=== PATIENT | male | born 1960 | race Caucasian/White ===

== ENCOUNTER 2021-08-28 05:57 | Outpatient (REF) | payer BC, SELFPAY ==
[2021-08-28 11:38] LABS: Appearance Urine CLEAR; Color Urine YELLOW; Glucose Urine UA NEG (NEG); Leukocyte Esterase Urine NEG (NEG); Nitrite Urine NEG (NEG); Specific Gravity - Urine 1.025 (1.005-1.025); Urine Blood NEG (NEG); Urine Ketones NEG (NEG); Urine Protein NEG (NEG-TRACE)
[2021-08-28 11:42] LABS: Alanine Aminotransferase 28 U/L (0-40); Albumin Level 4.3 g/dL (3.5-5.0); Alkaline Phosphatase 82 U/L (39-117); Anion Gap 11 (12-20); Aspartate Amino Transferase 29 U/L (5-37); Bilirubin Total 0.7 mg/dL (0.0-1.0); Blood Urea Nitrogen 20 mg/dL (9-16); Calcium 9.2 mg/dL (8.4-10.2); Carbon Dioxide 28 mmol/L (22-29); Chloride 104 mmol/L (96-108); Cholesterol 265 mg/dL; Estimated Glomerular Filt Rate > 60; Glucose Fasting 123 mg/dL (60-99); HDL Cholesterol 64 mg/dL; LDL Cholesterol Calculated 177 mg/dl; Potassium 4.4 mmol/L (3.3-5.1); Sodium 139 mmol/L (135-145); Total Protein 7.4 g/dL (6.5-8.0); Triglycerides 124 mg/dL
[2021-08-28 11:48] LABS: TSH reflex Free T4 2.13 uIU/mL (0.32-4.0)
[2021-09-02 12:21] LABS: Testosterone, Total 345 ng/dL (250-1100)
== END 2021-08-28 05:58 | disposition home or self-care (01) ==
LOC: HO.HMGCLDS 05:57
PROVIDERS: Visit Provider Nurse Practitioner Family
DX: Z00.00 Encounter for general adult medical examination without abnormal findings (principal); N52.9 Male erectile dysfunction, unspecified
CPT/HCPCS: 36415; 80053; 80061; 81003; 84403; 84443

== ENCOUNTER 2022-04-15 06:53 | Day surgery (SDC) | payer BC, SELFPAY ==
[2022-04-13 10:04] VITALS: BMI 29.9
[2022-04-13 10:18] VITALS: BMI 31.0
--- NOTE | 2022-04-14 13:43 | P.CONAN_ITS ---
Documented by User: Jewell Wilkerson NP 04/14/22 13:43 HPI - Anesthesia Eval Consult details Narrative: 62yo M for Colonoscopy PMFSH Active Problems Active Problems: All Active Problems (Updated 04/13/22 @ 10:17 by Jessica Lambert, ZURI) Screening for colon cancer (Acute) Physical exam (Acute) Skin lesion of face (Acute) Erectile dysfunction (Acute) Dyslipidemia (Acute) Elevated fasting glucose (Acute) Past Medical History Medical History Glaucoma Low back pain Family History Family History Father Pancreatic cancer Surgical History Surgical History H/O colonoscopy Social History Social History Housing: House Are you a primary critical care unit nurse to a significant other at home: No Do you presently have visiting nurse or other home services: No Patient Tobacco Use Status: Never used Tobacco e-Cigarette/Vaping Use: Never Used Second Hand Smoke Exposure: No Use of substances other than those prescribed or required for medical reasons: No Are you DNR?: No Advance Directives: No Advance Directives Information Provided: Yes Poor oral hygiene: No service: No Current occupational status: employed Current occupation: Behind [employer] Current occupational exposures/hazards: No Meds Allergies Allergy/AdvReac Type Severity Reaction Status Date / Time No Known Allergies Allergy Verified 12/09/21 15:32 [No Known Allergies*] Home Medications Medication Instructions Recorded Confirmed Last Taken Type latanoprost 0.005 % eye drops 1 drp ophthalmic (eye) BEDTIME 05/11/21 04/13/22 Unknown History Exam Exam Date and Time: April 14, 2022 1343 Height,Weight and Vital Signs: Height 5 ft 9 in Weight 95.254 kg Assessment and Plan Assessment Anesthesia Assessment: Chart Reviewed Documented by User: Joellen Simon MD 04/15/22 08:43 [facility] Past Medical History Medical History Glaucoma Low back pain Family History Family History Father Pancreatic cancer Family history of problems with anesthesia: No Surgical History Surgical History H/O colonoscopy History of Problems with Anesthesia: No Social History Social History Housing: House Are you a primary critical care unit nurse to a significant other at home: No Do you presently have visiting nurse or other home services: No Patient Tobacco Use Status: Never used Tobacco e-Cigarette/Vaping Use: Never Used Second Hand Smoke Exposure: No Use of substances other than those prescribed or required for medical reasons: No Are you DNR?: No Advance Directives: No Advance Directives Information Provided: Yes Poor oral hygiene: No service: No Current occupational status: employed Current occupation: Behind the [employer] Current occupational exposures/hazards: No Meds Allergies Allergy/AdvReac Type Severity Reaction Status Date / Time No Known Allergies Allergy Verified 12/09/21 15:32 [No Known Allergies*] Home Medications Medication Instructions Recorded Confirmed Last Taken Type latanoprost 0.005 % eye drops 1 drp ophthalmic (eye) BEDTIME 05/11/21 04/13/22 Unknown History Exam Height,Weight and Vital Signs: Height 5 ft 9 in Weight 95.254 kg Vital Signs Temp Pulse Resp BP Pulse Ox O2 Del Method 04/15/22 07:28 96.7 F L 66 16 120/79 97 Room Air Airway Mallampati Class: III TM Dist: >3cm Neck ROM: Full Loose/Missing/Broken Teeth: No (Denies broken, loose, missing teeth) Heart: RRR Lungs: CTAB Assessment and Plan Assessment Anesthesia Assessment: Anesthesia Plan Discussed Final Anesthetic Review Family History of Problems with Anesthesia: No History of Problems with Anesthesia: No NPO: Yes ASA Class: II Final Preanesthetic Review: No Changes in Pt Med Stat, Meds/Allgs Chart Reviewed, Consent Obtained/Reviewed and Anes Risks/Benef Reviewed Patient Risk: Low Procedure Risk: Low Assessment/Block/Sedation in SS: Assess/Block/Sedation-SS Anesthetic Plan Anesthetic Plan: MAC: Disposition: Standard PACU
--- NOTE | 2022-04-15 07:27 | PC.NURSE ---
no changes with pretesting per patient
[2022-04-15 07:28] VITALS: BP 120/79; PULSE 66; RESP 16; TEMP 35.9; O2SAT 97
[2022-04-15] MEDS: Lactated Ringers 1,000 ML 100 ML IVCONT (07:45)
--- NOTE | 2022-04-15 08:32 | MHC.SHP ---
Pre-Procedural Eval Section A Date of Service: 04/15/22 Section B Chief Complaint: screening Details of Present Illness: pancreatic cancer Relevant Family History (Specify if Yes): Yes Relevant Social History: None Present Medications: see Short Stay Collaborative assessment Medical History: Significant History (Glaucoma Low back pain) History of Previous Operations: Relevant previous surgery/procedure and date(s) (colonsocopy) Allergies: Allergies Allergy/AdvReac Type Severity Reaction Status Date / Time No Known Allergies Allergy Verified 12/09/21 15:32 [No Known Allergies*] Review of Systems Sugical H&P ROS: Negative: Constitution, Cardiovascular, Respiratory, Neurological, Psychiatric, Hem-Onc, Allergic/Immunologic, Gastrointestinal, Genitourinary, Musculoskeletal, Integumentary, Endocrine and Eyes/Ears/Nose/Throat Exam Surgical H&P Exam: Normal: HEENT, Normal: Heart, Normal: Lungs, Normal: Extremities, Normal: Abdomen, Normal: Skin and Normal: Neurological Plan Diagnosis/Plan: Unchanged I have reviewed the history and physical and performed a pertinent physical examination on my patient. No changes have occurred unless specified. Time Spent With Patient Time: Total time managing care of this patient today ____ minutes.
--- NOTE | 2022-04-15 08:33 | P.OP_ITS ---
Operative Note Operative Note Date of Service: 04/15/22 Narrative: Operative Information Procedure Description: Colonoscopy Indication: screening Anesthesia: MAC COLONOSCOPY Instrument: Olympus variable stiffness pediatric scope 190L Colonoscopy Monitoring: Vital signs and clinical assessment, continuous EKG monitoring, Pulse oximetry, Carbon Dioxide monitoring and blood pressure monitoring were done throughout the procedure. Colon withdrawal time was 13 minutes. Procedure: The patient was placed in the left lateral decubitis position and pre-procedure medications were administered. After a digital rectal examination of the ano-rectum, the video colonoscope was inserted into the rectum and advanced through the colon to the cecum/TI. The colonoscope was slowly withdrawn in a retrograde panoramic fashion and the colon mucosa was carefully examined including a retroflexed view of the rectum. Findings and interventions are described below. Procedure Difficulty: easy Findings: Terminal Ileum- patchy ileitis, bx taken Cecum:normal, biopsies taken Ascending Colon: 7-8 mm sessile polyp removed with forceps and cold snare Transverse Colon -normal Descending Colon: 10 mm sessile polyp removed with cold snare Sigmoid Colon: normal Rectum: Retroflexion with small internal hemorrhoids, grade I Anorectum - normal Colon preparation: [place] Bowel Preparation Scale Right colon; 2 Transverse colon: 2 Left colon; 2 (0 = Unprepared colon segment with mucosa not seen due to solid stool that cannot be cleared. 1 = Portion of mucosa of the colon segment seen, but other areas of the colon segment not well seen due to staining, residual stool and/or opaque liquid. 2 = Minor amount of residual staining, small fragments of stool and/or opaque liquid, but mucosa of colon segment seen well. 3 = Entire mucosa of colon segment seen well with no residual staining, small fragments of stool or opaque liquid) Impression and Post Procedure Diagnosis: polyps internal hemorrhoids ileitis Plan: High fiber diet leaflet Avoid straining at stool, epsom salts and sitz bath, anusol supps or cream Repeat Colonoscopy in 5 years due to polyps or earlier if clinically indicated check nsaid use, consider CTe or VCE Above findings were reviewed with the patient and relevant handouts were provided if indicated.
[2022-04-15 09:18] VITALS: BP 108/61; PULSE 73; RESP 16; TEMP 36.6; O2SAT 95
[2022-04-15 09:33] VITALS: BP 111/65; PULSE 65; RESP 16; TEMP 36.5; O2SAT 97
== END 2022-04-15 10:11 | disposition home or self-care (01) ==
PROVIDERS: PCP Nurse Practitioner Family; Visit Provider Internal Medicine Gastroenterology
PROC: 0DJD8ZZ Inspection of Lower Intestinal Tract, Via Natural or Artificial Opening Endoscopic (ICD-10-PCS; CPT 45378; principal; 2022-04-15 08:30)
DX: Z12.11 Encounter for screening for malignant neoplasm of colon (principal); D12.2 Benign neoplasm of ascending colon; D12.4 Benign neoplasm of descending colon; K50.00 Crohn's disease of small intestine without complications; K64.0 First degree hemorrhoids; Z86.010 Personal history of colon polyps; H40.9 Unspecified glaucoma; M54.50 Low back pain, unspecified; Z79.899 Other long term (current) drug therapy
CPT/HCPCS: 45385; 45380; 88305

== ENCOUNTER → 2022-05-07 07:56 | Outpatient (BNVA) | payer BC, SELFPAY | PROVIDERS: PCP Nurse Practitioner Family; Referring Provider Nurse Practitioner Family; Visit Provider Nurse Practitioner Family | DX: Z13.89 Encounter for screening for other disorder (principal) ==

== ENCOUNTER 2022-06-02 07:46 | Outpatient (REF) | payer BC, SELFPAY ==
--- NOTE | ~2022-06-02 | CT_ITS ---
EXAMINATION: CT ENTEROGRAPHY ABDOMEN AND PELVIS WITH CONTRAST CLINICAL INFORMATION: Crohn's disease of small intestine COMPARISON: None TECHNIQUE: Study performed with oral VoLumen (1350 mL) and 480 mL of water to distend the abdomen. The patient was injected with 85 mL Omnipaque 350 intravenous contrast which was administered without adverse effect. Coronal and sagittal reformatted images were obtained at the technologist's workstation. This CT examination was performed using dose optimization techniques as appropriate, variously including the following: *Automated exposure control *Adjustment of mA and/or kV according to patient size (this includes techniques or standardized protocols for targeted exams where dose is matched to indication/reason for exam; i.e. extremities or head) *Use of iterative reconstruction technique DLP: 554 mGy-cm FINDINGS: GASTROINTESTINAL FINDINGS: Stomach: Well-distended and normal in appearance. Small intestine: Satisfactorily distended and normal in appearance. Large intestine: Well-distended and normal in appearance. No perirectal changes demonstrated. The appendix is normal. Additional findings: No abnormal enhancement of the vasa recta or significant mesenteric or retroperitoneal lymphadenopathy is seen. No abdominal abscess or fistulous tract demonstrated. ABDOMINAL AND PELVIC CT FINDINGS: Liver, gallbladder, biliary tract: Normal Pancreas: Normal Spleen: Normal Adrenal glands and kidneys: There is a small 1 cm cyst in the right kidney. No imaging follow-up recommended. The kidneys are otherwise normal. Ureters and bladder: Normal Lymphovascular structures: Normal Bones: Degenerative changes of the spine. Lung bases: Normal There is a small left inguinal hernia containing fat. Small supraumbilical hernia containing fat. CT/CT enterography IMPRESSION: No evidence of inflammatory bowel disease seen.
[2022-06-02] MEDS: iohexoL 350 MG/ML 100 ML INFUS..BTL IV (09:33)
[2022-06-02] MEDS: Sorbitol/Mannit/Xanth Imaging 500 ML LIQUID 1500 ML PO (09:33)
[2022-06-03 08:50] LABS: Creatinine POC 1.2 mg/dL (0.5-1.4); GFR POC > 60
== END 2022-06-02 07:47 | disposition home or self-care (01) ==
LOC: HO.CT 07:46
PROVIDERS: PCP Nurse Practitioner Family; Visit Provider Nurse Practitioner Family
DX: K50.00 Crohn's disease of small intestine without complications (principal)
CPT/HCPCS: 74177; 82565; Q9967

== ENCOUNTER 2023-02-08 07:04 | Outpatient (REF) | payer BC, SELFPAY ==
[2023-02-08 11:10] LABS: MANUAL DIFF FLAG NO
[2023-02-08 11:18] LABS: Basophils Absolute Auto 0.1 X10*3/uL (0.0-0.2); Basophils Percent Auto 0.9 % (0-2); Eosinophils Absolute Auto 0.2 X10*3/uL (0.0-0.4); Eosinophils Percent Auto 2.2 % (0-4); Hematocrit 45.6 % (42.0-52.0); Hemoglobin 15.6 g/dl (14.0-18.0); Imm Gran Abs Auto 0.04 X10*3/uL (0.00-0.03); Imm Gran Pct Auto 0.5 % (0.0-0.4); Lymphocytes Absolute Auto 1.8 X10*3/uL (1.2-4.9); Lymphocytes Percent Auto 23.6 % (20-40); Mean Corpuscular HGB Conc 34.2 g/dl (31.0-36.0); Mean Corpuscular Volume 93.6 fL (80.0-98.0); Mean Platelet Volume 9.8 fL (9.4-12.4); Monocytes Absolute Auto 0.6 X10*3/uL (0.1-1.2); Monocytes Percent Auto 7.4 % (2-11); Neutrophils Absolute Auto 4.8 x10*3/uL (2.0-8.3); Neutrophils Percent Auto 65.4 % (45-73); Platelet Count 245 X10*3/uL (160-400); Red Blood Count 4.87 X10*6/uL (4.60-5.80); Red Cell Distribution Width 12.3 % (11.0-16.0); White Blood Count 7.4 X10*3/uL (4.8-10.8)
[2023-02-08 11:48] LABS: Appearance Urine Clear; Color Urine Yellow; Glucose Urine UA Negative (Negative); Leukocyte Esterase Urine Negative (Negative); Nitrite Urine Negative (Negative); PH 5.5 (5.0-9.0); Urine Blood Negative (Negative); Urine Ketones Negative (Negative); Urine Protein Negative (Neg-Trace)
[2023-02-08 11:49] LABS: Prostate Specific Antigen Scr 0.34 ng/mL (<0.05-4.0)
[2023-02-08 11:54] LABS: Alanine Aminotransferase 24 U/L (0-40); Albumin Level 4.3 g/dL (3.5-5.0); Alkaline Phosphatase 72 U/L (39-117); Anion Gap 14 (12-20); Aspartate Amino Transferase 23 U/L (5-37); Bilirubin Total 0.8 mg/dL (0.0-1.0); Blood Urea Nitrogen 19 mg/dL (9-16); Calcium 9.4 mg/dL (8.4-10.2); Carbon Dioxide 27 mmol/L (22-29); Chloride 102 mmol/L (96-108); Cholesterol 272 mg/dL (<200); Estimated Glomerular Filt Rate > 60; Glucose Fasting 113 mg/dL (60-99); HDL Cholesterol 56 mg/dL (>40); LDL Cholesterol Calculated 169 mg/dL (<100); Potassium 4.1 mmol/L (3.3-5.1); Sodium 139 mmol/L (135-145); Total Protein 7.7 g/dL (6.5-8.0); Triglycerides 238 mg/dL (<150)
[2023-02-08 11:55] LABS: TSH reflex Free T4 2.63 uIU/mL (0.32-4.0)
== END 2023-02-08 07:05 | disposition home or self-care (01) ==
LOC: HO.HMGCLDS 07:04
PROVIDERS: PCP Nurse Practitioner Family; Visit Provider Nurse Practitioner Family
DX: Z00.00 Encounter for general adult medical examination without abnormal findings (principal); Z12.5 Encounter for screening for malignant neoplasm of prostate; E78.5 Hyperlipidemia, unspecified; R73.01 Impaired fasting glucose
CPT/HCPCS: 36415; 80053; 80061; 81003; 84153; 84443; 85025

== ENCOUNTER 2023-02-10 13:36 | Outpatient (AMB) | payer BC, SELFPAY ==
--- NOTE | 2023-02-10 13:52 | A.OFFPC_ITS ---
Vital Signs 02/10/23 13:53 Weight 227 lb BP 122/80 Blood Pressure Location Lt brachial Position Sitting Pulse 64 Pulse Source Pulse Oximeter Pulse Oximetry (%) 94 Oxygen Delivery Method Room Air Intake Visit Reasons: Physical Allergies No Known Allergies [No Known Allergies*] Allergy (Verified 02/10/23 13:54) Tobacco use date assessed: 02/10/23 Dental Screening Dental Screen Date: 02/10/23 Did you have a dental visit in the last 12 months?: No Did you have a dental problem in the last 6 months where you did not have access to dental care?: No Was dental information given to patient?: Patient has dentist HPI Physical HPI Details Here for PE. colon screen is up to date. Does report nocturia (2-3 times per night), intermittent weak stream. will refer to urology. Dyslipidemia: starting statin, repeat lipids in 2 months. SOB with exertion, denies any CP, dizziness, MORAN. Will order a stress test and echo. [facility] Medical History Low back pain Glaucoma Surgical History H/O colonoscopy Family History Father Pancreatic cancer Social History Housing: House Are you a primary day care aide to a significant other at home: No Do you presently have visiting nurse or other home services: No Patient Tobacco Use Status: Never used Tobacco e-Cigarette/Vaping Use: Never Used Second Hand Smoke Exposure: No service: No Current occupational status: employed Current occupation: [employer] Current occupational exposures/hazards: No Questionnaire Thrive Questionnaire Date Thrive assessed: 05/11/21 I am a: Patient What is your living situation today?: I have a steady place to live Within the past 12 months, did the food you bought not last and you didn't have the money to get more?: Never true Within the past 12 months, did you worry whether your food would run out before you got money to buy more?: Never true Currently or been in a relationship where the following occur: no concerns reported AUDIT C Alcohol Use Questionnaire (AUDIT-C) 1. How often do you have a drink containing alcohol?: 2-3 times a week 2. How many drinks containing alcohol do you have on a typical day when you are drinking?: 3 or 4 3. How often do you have six or more drinks on one occasion?: Monthly Total Score: 6 Score Reviewed/Action Taken: Yes COLLEEN-7 AMB Questionnaire COLLEEN-7 Date COLLEEN - 7 assessed: 05/11/21 Feeling nervous, anxious, or on edge: 0 = Not at all Not being able to stop or control worryin = Not at all Worrying too much about different things: 0 = Not at all Trouble relaxin = Not at all Being so restless that it is hard to sit still: 0 = Not at all Becoming easily annoyed or irritable: 0 = Not at all Feeling afraid as if something awful might happen: 0 = Not at all Total COLLEEN-7 score (0-4 normal; 5-9 mild; 10-14 moderate; 15-21 severe): 0 Source: Developed by Drs. Celso Page, Adriana Mcallister, Bipin Garay and colleagues, with an educational chacha from [employer]. Review of Systems Const Denies chills and Denies fever(s) Eyes Denies blurry vision ENT Denies vertigo, Denies dizziness and Denies sore throat Card Denies chest pain at rest, Denies chest pain with activity, Denies diaphoresis, Denies dyspnea and Reports dyspnea on exertion Resp Denies cough, Denies dyspnea, Reports dyspnea on exertion and Denies wheezing GI Denies abdominal pain, Denies melena, Denies hematochezia, Denies constipation, Denies diarrhea and Denies loose stools Denies hematuria Musc Denies numbness and Denies tingling Skin/Breast Denies lesions Neuro Denies vertigo, Denies dizziness, Denies numbness and Denies tingling Psych Denies anxiety, Denies depression, Denies homicidal ideation, Denies suicidal ideation and Denies other (substance abuse) Aller/Immun Denies wheezing Physical exam (Primary Care) Vital Signs: Last Vital Signs Pulse 64 02/10/23 13:53 BP 122/80 02/10/23 13:53 Pulse Ox 94 02/10/23 13:53 Oxygen Delivery Method Room Air 02/10/23 13:53 Tobacco/Smoking Status: Tobacco use Status Tobacco use date assessed 02/10/23 02/10/23 13:56 Patient Tobacco Use Status Never used Tobacco 02/10/23 13:56 e-Cigarette/Vaping Use Never Used 02/10/23 13:56 Thrive Assessment: Date of Thrive Assessment Date Thrive assessed 05/11/21 02/10/23 13:56 Currently or been in a relationship where the following occur: no concerns reported Const General: cooperative Nutritional Appearance: well nourished Orientation/consciousness: patient oriented x3 HENMT Head: Yes normal to inspection, Yes normocephalic and Yes atraumatic Ears: TM normal on the right and TM normal on the left Eyes General: appearance normal, both eyes and all related structures Alignment and Position: alignment normal and position normal Neck Neck: Yes normal visual inspection and Yes no lymphadenopathy Resp Effort & Inspection: normal respiratory effort Auscultation: clear to auscultation bilaterally Cardio Rate: regular rate Rhythm: regular rhythm Heart sounds: S1 normal heart sound present, S2 normal heart sound present and no murmurs GI Palpation (GI): Soft to palpation and nontender Auscultation: normal bowel sounds Other: prostate felt slightly enlarged Male General Exam: Yes normal external exam Penis: normal penis Scrotum: scrotum normal, testes descended bilaterally and no inguinal hernias Testes: no testicular mass Skin Rashes: no rashes Neuro General: patient oriented x3, moves all extremities, no focal motor deficits and deep tendon reflexes 2+ bilaterally Romberg Test: Negative Extrem Right lower extremity: no edema Left lower extremity: no edema Psych Appearance: grossly normal Mental Status: mental status grossly normal Speech and movement: Normal speech and movement present Affect: normal affect Attitude: cooperative Thought process: Normal thought process present Assessment and Plan Assessment & Plan (1) Physical exam: Code(s): Z00.00 - Encounter for general adult medical examination without abnormal findings (2) Dyslipidemia: Code(s): E78.5 - Hyperlipidemia, unspecified Plan: start statin, repeat lipids in 2 months (3) SOB (shortness of breath): Code(s): R06.02 - Shortness of breath (4) Nocturia: Code(s): R35.1 - Nocturia Orders: Orders Comprehensive [place]. Panel Fast 2 Months E78.5 - Hyperlipidemia, unspecified Lipid Panel 2 Months E78.5 - Hyperlipidemia, unspecified AMB EKG-In Office Today Z00.00 - Encounter for general adult medical examination without abnormal findings CA stress test Today R06.02 - Shortness of breath NM cardiolite stress test Today R06.02 - Shortness of breath CA echo transthoracic complete Today R06.02 - Shortness of breath Referrals Urology Referral R35.1 - Nocturia Medications: New atorvastatin 20 mg PO BEDTIME 90 tabs 0RF 90 days Coding Level of Care Code Est Pt Prev Care 40-64y(70303) Diagnoses Physical exam Z00.00 Dyslipidemia E78.5 SOB (shortness of breath) R06.02 Nocturia R35.1
[2023-02-10 13:53] VITALS: BP 122/80; PULSE 64; O2SAT 94
== END 2023-02-10 15:00 | disposition home or self-care (01) ==
PROVIDERS: PCP Nurse Practitioner Family; Visit Provider Nurse Practitioner Family
DX: Z00.00 Encounter for general adult medical examination without abnormal findings (principal); E78.5 Hyperlipidemia, unspecified; R06.02 Shortness of breath; R35.1 Nocturia
CPT/HCPCS: 99396

== ENCOUNTER → 2023-04-01 08:02 | Outpatient (REF) | payer BC, SELFPAY ==
--- NOTE | ~2023-04-01 | NM_ITS ---
EXERCISE MYOCARDIAL PERFUSION STUDY INDICATION: Shortness of breath, assess for coronary disease and ischemia TECHNIQUE: The patient was brought in for an exercise perfusion study on 04/01/2023. Patient performed exercise as per Eric protocol and was injected 25 mCi of sestamibi once target heart rate was achieved. Images were obtained using the SPECT gamma camera interlaced with the gating device. Images were obtained in supine position. Resting perfusion study was performed on 04/07/2023. Patient was administered 25 mCi of sestamibi intravenously at rest. Images were then obtained in supine position. Images were processed with the software and compared side to side in short axis, horizontal long axis and vertical long axis views. Total DLP 140mGy-cm. FINDINGS: Raw images were reviewed. The stress perfusion study showed no significant perfusion defects. Both uncorrected as well as CT attenuation corrected images were reviewed. The gated study shows normal LV systolic function with calculated LVEF of 55%. LV cavity is normal in size. The gated study shows normal wall thickening and contraction of segments. Resting study shows no significant perfusion defects. Gating at rest reveals normal wall motion with ejection fraction at 61%. The findings are consistent with no clear reversible or fixed perfusion defects. NM/NM cardiolite stress test IMPRESSION: 1. Myocardial perfusion imaging study shows normal myocardial perfusion. 2. Gated LVEF is 52% during stress and 61% during rest. 3. Transient ischemic dilatation not present. EKG component of the test reported separately.
--- NOTE | 2023-04-01 08:05 | CA_ITS ---
Transthoracic Echocardiogram Patient (Last, First, Middle): Rajat Pino, Gender: Male Date of : 1960 Age: 63 Procedure Date: 04/01/2023 Procedure Type: Transthoracic Echocardiogram Location: OP Height: 175.26 cm Weight: 99.79 kg BSA: 2.15 m2 Heart Rate: bpm BP: 124 / 80 mmHg Bindery Worker: Referring MD: Marquise Banks [facility] Acid Cutter: Bo Cotto MD Symptoms: R06.02 - Shortness of breath Study Quality: Fair ECG Rhythm: Sinus Conclusions: - 1. Normal LV systolic function with LVEF of 60-65% 2. Normal cardiac valvular Doppler 3. Normal RV systolic pressure 4. No gross pericardial effusion Findings Left Ventricle Normal left ventricular size, thickness, and systolic function. The visually estimated ejection fraction is between 60-65%. Spectral Doppler is indicative of a normal filling pattern. Right Ventricle Normal right ventricular cavity size and systolic function. Atria Both atria are normal in size. Interatrial shunt cannot be excluded. Aortic Valve Normal aortic valve structure and function. There is no aortic valve stenosis. There is no aortic valve regurgitation. Mitral Valve Normal mitral valve structure and function. There is trace mitral valve regurgitation. There is no mitral valve stenosis. Pulmonic Valve The pulmonic valve is likely normal. Tricuspid Valve Normal tricuspid valve structure. There is trace tricuspid valve regurgitation. The right ventricular systolic pressure is normal. The right ventricular systolic pressure is 19 mmHg. Normal right atrial pressure. There is no evidence of pulmonary hypertension. Great Vessels All visible segments of the aorta are normal in size. The pulmonary artery was not well visualized. Venous The inferior vena cava is normal in size and collapses greater than 50% with inspiration. Pericardium/Pleural There is no evidence of pericardial effusion. Prior Study Comparison No prior study available for comparison. Measurements 2D Linear Measurements IVSd: 0.84 0.6-0.9/0.6-1.0 cm LVIDd: 4.49 3.9-5.3/4.2-5.9 cm LVIDd Index: 2.09 2.4-3.2/2.2-3.1 cm/m2 LVIDs: 2.70 2.0-3.6 cm LVPWd: 1.01 0.7-1.1 cm Ao Root: 3.00 2.1-3.5 cm LA Diam: 3.80 2.7-3.8/3.0-4.0 cm LAIDs Index: 1.77 1.5-2.3 cm/m2 LV Mass: 170.77 67-162/88-224 g LV Mass Index: 79.43 43-95/49-115 g/m2 LVOT Diam: 2.20 3.0+(-)1.3 cm 2D Systolic Function EF 4C: 61.20 >55% EF 2C: 58.30 >55% EF BiP: 60.30 >55% Mitral Valve MV Pk E: 0.61 MV PK A: 0.60 MV Decel Time: 194.00 E/A: 1.00 E'Lateral: 9.79 E'Medial: 6.09 E/E' Med: 10.00 E/E' Lat: 6.20 PHT: 57.00 MVA PHT: 3.86 Decel Jasper: 3.13 Aortic Valve AoV Pk Brayan: 1.06 AoV Mn Brayan: 0.73 AoV VTI: 0.23 AoV Pk Grad: 4.00 Aov Mn Grad: 2.00 FADY Cont.VTI: 2.71 LVOT LVOT Pk Brayan: 0.80 LVOT Mn Brayan: 0.49 LVOT VTI: 0.17 LVOT Pk Grad: 3.00 LVOT Mn Grad: 1.00 LVOT Diam: 2.20 LVOT Area: 3.80 Diastolic Function MV Pk E: 0.61 MV Pk A: 0.60 E/A: 1.00 E'Medial: 6.09 E/E' Med: 10.00 E' Laterial: 9.79 E/E' Lat: 6.20 Right Ventricle TAPSE (mm): 23.00 TVS' Brayan: 11.00 Tricuspid Valve TR Pk Brayan: 1.98 TR Pk Grad: 16.00 RA Press: 3.00 RVSP: 19.00 Great Vessels Aorta Ao Root-2D: 3.00 2.0-3.7 cm Ao Asc: 3.40 2.1-3.4 cm Pulmonary Valve PV Pk Brayan: 0.93 Peak PV Grad: 3.00 Updated in Other Vendor System with Status of Final Bo Cotto MD electronically signed on 04/01/2023 12:53:17 PM with status of Final
--- NOTE | 2023-04-01 08:05 | CA_ITS ---
Acquisition Time: 2023-04-01 09:32:23 Total Exercise Time: 00:08:31 Test Indications: Dyspnea Medications: ATORVASTATIN Protocol: RAMILA Max HR: 136 BPM 85% of Pred: 159 BPM Max BP: 130/074 mmHG Max Work Load: 10.1 METS Exercise stress test with exercise 8 min 31 sec of Ramila protocol, achieving 85% MPHR, with mild sob, no chest discomfort, with isolated PACs and PVCs, with normotensive response to exercise, without EKG changes meeting criteria for ischemia. Nuclear images pending. Test reviewed with Dr Cotto Referred By: Marquise Banks Overread By: ISABELLE LARA
== END ==
LOC: HO.CARD 08:02
PROVIDERS: PCP Nurse Practitioner Family; Visit Provider Nurse Practitioner Family
DX: R06.02 Shortness of breath (principal)
CPT/HCPCS: 78452; 93017; 93306; A9500; Q9957

== ENCOUNTER → 2023-04-01 08:05 | Outpatient (BNV) | payer BC, SELFPAY | PROVIDERS: PCP Nurse Practitioner Family; Visit Provider Nurse Practitioner Family | DX: R06.02 Shortness of breath (principal) | CPT/HCPCS: 78452; 93016; 93018; 93306 ==

== ENCOUNTER 2023-04-05 08:46 | Outpatient (AMB) | payer BC, SELFPAY ==
--- NOTE | 2023-04-05 08:50 | A.OFFVIS_ITS ---
Intake Intake Visit Reasons: Nocturia Intake Note: New Patient presents for initial visit for Nocturia Urology Medications: none Blood Thinner: none PVR: Purchasing Agent Required: No Accompanied by: Self / Same As Patient Allergies No Known Allergies [No Known Allergies*] Allergy (Verified 04/05/23 09:23) Medication List - Last Reconciled 04/05/23 by MARLIN Knott atorvastatin 20 mg PO BEDTIME 90 days latanoprost 0.005% 1 drp ophthalmic (eye) BEDTIME HPI HPI Comments History of Present Illness Details Rajat Corral is a very pleasant 63-year-old male patient of Dr. Banks. He has a past medical history of glaucoma in back pain. He presents to the office today as a new patient for nocturia. In discussion with the patient today he reports noting over the last few months to be getting up approximately 2-3 times per night and discussing this with PCP at annual visit at which time recommendations were made for Urology follow-up. In review of patient's chart it appears PSA 01/31--0.3. He otherwise denies urinary urgency, urinary frequency, incontinence, hematuria, dysuria, foul smelling urine, changes to urinary stream, flank pain, fever, and or chills. Discussed at length potential causes for nocturia. Discussed lifestyle modifications to assist with nocturia. Patient otherwise denies any signs and symptoms of sleep apnea. When asked he denies any issues with erectile dysfunction. Discussed obtaining retroperitoneal ultrasound for further assessment evaluation. ERNIE offered however patient reports having had ERNIE with PCP noting somewhat enlarged prostate otherwise being told no abnormalities were noted. In office urinalysis results reviewed with the patient today. PVR 46 mLs. PFSH Medical History Low back pain Glaucoma Surgical History H/O colonoscopy Family History Father Pancreatic cancer Social History Housing: House Are you a primary wound care coordinator to a significant other at home: No Do you presently have visiting nurse or other home services: No Patient Tobacco Use Status: Never used Tobacco e-Cigarette/Vaping Use: Never Used Second Hand Smoke Exposure: No service: No Current occupational status: employed Current occupation: [employer] Current occupational exposures/hazards: No Review of Systems Const All systems reviewed & are unremarkable except as noted in HPI and below Physical Exam Const General: cooperative, comfortable, no acute distress, well developed, alert and awake Orientation/consciousness: patient oriented x3 HEENT Head: Yes normal to inspection, Yes normocephalic and Yes atraumatic Ears: hearing grossly normal bilaterally Eyes General: appearance normal, both eyes and all related structures Neck Neck: Yes normal visual inspection and Yes trachea midline Chest Chest palpation & inspection: normal inspection of the chest Resp Effort & Inspection: normal respiratory effort and able to speak in complete sentences Cardio Rate: regular rate GI Inspection: Yes normal to inspection General: Yes no CVA tenderness Back/Spine/Pelvis Back: no CVA tenderness Skin General skin exam: no rashes or lesions noted Neuro General: patient oriented x3 Extrem General: Yes normal to inspection Psych Appearance: grossly normal and well kempt Mental Status: mental status grossly normal Speech and movement: Normal speech and movement present and Clear speech present Affect: normal affect Attitude: cooperative Thought process: Normal thought process present Thought content: Normal thought content present Insight: Good insight present (Psych) Judgement: Good judgement present (Psych) Office Procedures Post Void Residual Post Residual Void Post Void Residual (PVR): 46 [id number] Void Residual by ultrasound Results AMB Urinalysis, Automated UA Leukoctes 0 Ashley/uL Last Edit by [employer] on 04/05/23 09:14 UA Nitrite Negative Last Edit by [employer] on 04/05/23 09:14 UA Urobilinogen 0.2 mg/dL Last Edit by [employer] on 04/05/23 09:14 UA Protein 0 mg/dL Last Edit by [employer] on 04/05/23 09:14 UA pH 6.0 Last Edit by [employer] on 04/05/23 09:14 UA Blood 0 Raj/uL Last Edit by [employer] on 04/05/23 09:14 UA Specific [place] 1.020 Last Edit by [employer] on 04/05/23 09:14 UA Ketone Negative Last Edit by Devonte Wilcox on 04/05/23 09:14 UA Bilirubin 0 mg/dL Last Edit by Devonte Wilcox on 04/05/23 09:14 UA Glucose 0 mg/dL Last Edit by Devonte Wilcox on 04/05/23 09:14 Results Reviewed Results Reviewed: Laboratory Last Values Urine pH (Auto) 6.0 04/05/23 08:52 Specific [place] (Auto) 1.020 04/05/23 08:52 Urine Protein (Auto) 0 mg/dL 04/05/23 08:52 Glucose (UA)(Auto) 0 mg/dL 04/05/23 08:52 Urine Ketones (Auto) Negative 04/05/23 08:52 Urine Blood (Auto) 0 Raj/uL 04/05/23 08:52 Urine Nitrite (Auto) Negative 04/05/23 08:52 Urine Bilirubin (Auto) 0 mg/dL 04/05/23 08:52 Urine Urobilinogen (Auto) 0.2 mg/dL 04/05/23 08:52 Leukocyte Esterase (Auto) 0 Ashley/uL 04/05/23 08:52 Assessment & Plan Assessment & Plan (1) Nocturia: Code(s): R35.1 - Nocturia Plan In office urinalysis results reviewed with the patient today; as noted above. PVR 46 mL. Discussed at length potential causes for nocturia Discussed lifestyle modifications to assist with decreasing episodes of nocturia such as limiting fluids 2-3 hours prior to bed. Discussed possible near future in office cystoscopy if symptoms persist and/or worsen. Will obtain retroperitoneal ultrasound for further assessment evaluation. Follow-up in 1-2 months with imaging to be completed prior; or sooner with any issues, concerns, and or questions. Orders: Orders AMB Urinalysis Automated Today Z13.9 - Encounter for screening, unspecified AMB Post Void Residual by ultrasound Today R35.1 - Nocturia US retroperitoneal comp Today R35.1 - Nocturia Patient Instructions: The patient had an opportunity to ask questions regarding the treatment plan. All questions were answered. Physical exam, labs, and imaging were discussed and reviewed in detail. As well as risks, benefits, and discussion of treatment choices. No major barriers to understanding were identified. The patient expressed understanding and agreement with the above treatment plan. The patient was made aware they should contact our office by phone for worsening of their current condition, the appearance of new symptoms, or with any questions or concerns. Compliance is encouraged with any medications and follow up testing that is ordered. It is a privilege to be allowed the opportunity to participate in? your urological care.? Again, if you have any questions or concerns If you have any questions or concerns please do not hesitate to contact me. The office is [phone]. This note is constructed using voice recognition software. While every effort has been made to ensure accuracy legal arbitrator errors may have been included. Yours sincerely, MARLIN Knott Coding Level of Care Code New Pt Level 3 (19628) Diagnoses Nocturia R35.1 CPT Codes Post Residual Void - PVR CPT Code: 95678-Lukh Void Residual by ultrasound ([id number])
== END 2023-04-05 09:24 | disposition home or self-care (01) ==
PROVIDERS: PCP Nurse Practitioner Family; Visit Provider Nurse Practitioner Family
DX: R35.1 Nocturia (principal); Z13.9 Encounter for screening, unspecified
CPT/HCPCS: 99203

== ENCOUNTER → 2023-04-05 08:46 | Outpatient (BNVA) | payer BC, SELFPAY | PROVIDERS: PCP Nurse Practitioner Family; Visit Provider Nurse Practitioner Family | DX: R35.1 Nocturia (principal) | CPT/HCPCS: 51798; 81003 ==

== ENCOUNTER 2023-04-07 07:41 | Outpatient (REF) | payer BC, SELFPAY | END 2023-04-07 07:42 | disposition home or self-care (01) | LOC: HO.XRAY 07:41 | PROVIDERS: PCP Nurse Practitioner Family; Visit Provider Nurse Practitioner Family | DX: R06.02 Shortness of breath (principal) | CPT/HCPCS: 71046 ==

== ENCOUNTER 2023-04-27 06:40 | Outpatient (REF) | payer BC, SELFPAY ==
[2023-04-27 11:54] LABS: Alanine Aminotransferase 49 U/L (0-40); Albumin Level 4.2 g/dL (3.5-5.0); Alkaline Phosphatase 80 U/L (39-117); Anion Gap 12 (12-20); Aspartate Amino Transferase 37 U/L (5-37); Bilirubin Total 0.9 mg/dL (0.0-1.0); Blood Urea Nitrogen 15 mg/dL (9-16); Calcium 9.2 mg/dL (8.4-10.2); Carbon Dioxide 28 mmol/L (22-29); Chloride 101 mmol/L (96-108); Cholesterol 173 mg/dL (<200); Estimated Glomerular Filt Rate 56; Glucose Fasting 120 mg/dL (60-99); HDL Cholesterol 54 mg/dL (>40); LDL Cholesterol Calculated 88 mg/dL (<100); Sodium 137 mmol/L (135-145); Total Protein 7.6 g/dL (6.5-8.0); Triglycerides 157 mg/dL (<150)
== END 2023-04-27 06:41 | disposition home or self-care (01) ==
LOC: HO.HMGCLDS 06:40
PROVIDERS: PCP Nurse Practitioner Family; Visit Provider Nurse Practitioner Family
DX: E78.5 Hyperlipidemia, unspecified (principal)
CPT/HCPCS: 36415; 80053; 80061

== ENCOUNTER 2023-05-04 08:22 | Outpatient (REF) | payer BC, SELFPAY ==
--- NOTE | ~2023-05-04 | US_ITS ---
EXAMINATION: US ABDOMEN COMPLETE CLINICAL INFORMATION: Abnormal levels of other serum enzymes. COMPARISON: CT enterography 06/02/2022. TECHNIQUE: Real-time imaging of the abdominal viscera. FINDINGS: PANCREAS: Normal. ABDOMINAL AORTA: The proximal, mid, and distal segments are normal in caliber. INFERIOR VENA CAVA: Visualized portions are normal. LIVER: The liver is normal in size. The liver contour is normal. Increased liver parenchymal echogenicity. No focal hepatic lesion. There is no intrahepatic biliary duct dilatation seen. GALLBLADDER: Normal. The gallbladder is physiologically distended without evidence of stones, sludge, polyps, wall thickening or pericholecystic fluid. COMMON BILE DUCT: Normal in caliber measuring 0.2 cm in diameter. RIGHT KIDNEY: Normal. No hydronephrosis. No renal calculi or focal parenchymal lesions. The kidney measures 10.3 cm in maximum dimension. LEFT KIDNEY: Normal. No hydronephrosis. No renal calculi or focal parenchymal lesions. The kidney measures 12.0 cm in maximum dimension. SPLEEN: Normal. The spleen measures 12.2 cm in maximum dimension. Splenule measuring up to 1.8 cm. FREE FLUID: None. US/US abdomen complete IMPRESSION: Increased liver parenchymal echogenicity which is nonspecific but could be seen in the setting of hepatic steatosis or hepatocellular disease
--- NOTE | ~2023-05-04 | US_ITS ---
EXAMINATION: US PELVIS LIMITED (BLADDER) CLINICAL INFORMATION: Nocturia. COMPARISON: CT enterography 06/02/2022. TECHNIQUE: Real-time imaging of the bladder. FINDINGS: BLADDER: Well distended and normal. Bilateral ureteral jets are demonstrated. Prevoid bladder volume is 324 mL. Postvoid bladder volume is 19.4 mL. Enlarged prostate, volume 42 mL. US/US bladder IMPRESSION: 1. Normal sonographic appearance of the urinary bladder. 2. Enlarged prostate. 3. Post void bladder volume of 19.4 mL.
== END 2023-05-04 08:23 | disposition home or self-care (01) ==
LOC: HO.HMGCX 08:22
PROVIDERS: PCP Nurse Practitioner Family; Visit Provider Nurse Practitioner Family
DX: R74.8 Abnormal levels of other serum enzymes (principal)
CPT/HCPCS: 76700; 76857

== ENCOUNTER 2023-05-23 08:25 | Outpatient (AMB) | payer BC, SELFPAY ==
--- NOTE | 2023-05-23 08:31 | A.OFFVIS_ITS ---
Intake Intake Visit Reasons: 4-8 week follow up / US(SET) Intake Note: Patient presents for follow up visit for Nocturia and Ultrasound results Imagin05/04/23 Urology medications: none Blood thinner: none PVR: 25ml's Presser Machine Required: No Accompanied by: Self / Same As Patient Allergies No Known Allergies [No Known Allergies*] Allergy (Verified 05/23/23 09:52) Medication List - Last Reconciled 05/23/23 by MARLIN Knott atorvastatin 20 mg PO BEDTIME 90 days latanoprost 0.005% 1 drp ophthalmic (eye) BEDTIME HPI HPI Comments History of Present Illness Details Rajat Corral is a very pleasant 63-year-old male patient of Dr. Banks. He has a past medical history of glaucoma in back pain. He presents to the office today for a follow up. Of note, patient was seen approximately 6 weeks ago as a new patient for nocturia at which time retroperitoneal ultrasound was ordered for further assessment evaluation in discussion regarding lifestyle modifications for nocturia was reviewed. In discussion with the patient today reports to be doing and feeling well. He reports having limited fluids 2-3 hours prior to bed and has noted significant improvement in episodes of nocturia. He reports currently to be getting up 1 time per night and feels this is significantly improved and tolerable. Recent retroperitoneal ultrasound results reviewed with the patient today. Bilateral kidneys with no calculi, lesions, and or hydronephrosis noted. The bladder is well distended and normal. Bilateral ureteral jets are demonstrated. Pre void bladder volume is approximately 320 mL. Postvoid bladder volume is approximately 20 mL. Enlarged prostate at approximately 40 mL. He otherwise denies urinary urgency, urinary frequency, incontinence, nocturia, hematuria, dysuria, foul smelling urine, changes to urinary stream, flank pain, fever, and or chills. He is happy with his current voiding parameters. In office urinalysis results reviewed with the patient today. PVR 25 mL. He otherwise offers no other issues or concerns at this time. PSA 01/31--0.3 PFSH Medical History Fatty liver Low back pain Glaucoma Surgical History H/O colonoscopy Family History Father Pancreatic cancer Social History Housing: House Are you a primary child care coordinator to a significant other at home: No Do you presently have visiting nurse or other home services: No Patient Tobacco Use Status: Never used Tobacco e-Cigarette/Vaping Use: Never Used Second Hand Smoke Exposure: No service: No Current occupational status: employed Current occupation: [employer] Current occupational exposures/hazards: No Review of Systems Const All systems reviewed & are unremarkable except as noted in HPI and below Physical Exam Const General: cooperative, comfortable, no acute distress, well developed, alert and awake Orientation/consciousness: patient oriented x3 HEENT Head: Yes normal to inspection, Yes normocephalic and Yes atraumatic Ears: hearing grossly normal bilaterally Eyes General: appearance normal, both eyes and all related structures Neck Neck: Yes normal visual inspection and Yes trachea midline Chest Chest palpation & inspection: normal inspection of the chest Resp Effort & Inspection: normal respiratory effort and able to speak in complete sentences Cardio Rate: regular rate GI Inspection: Yes normal to inspection General: Yes no CVA tenderness Back/Spine/Pelvis Back: no CVA tenderness Skin General skin exam: no rashes or lesions noted Neuro General: patient oriented x3 Extrem General: Yes normal to inspection Psych Appearance: grossly normal and well kempt Mental Status: mental status grossly normal Speech and movement: Normal speech and movement present and Clear speech present Affect: normal affect Attitude: cooperative Thought process: Normal thought process present Thought content: Normal thought content present Insight: Good insight present (Psych) Judgement: Good judgement present (Psych) Office Procedures Post Void Residual Post Residual Void Post Void Residual (PVR): 25 [id number] Void Residual by ultrasound Results AMB Urinalysis, Automated UA Leukoctes 0 Ashley/uL Last Edit by Devonte Wilcox on 05/23/23 08:44 UA Nitrite Negative Last Edit by Devonte Wilcox on 05/23/23 08:44 UA Urobilinogen 0.2 mg/dL Last Edit by Devonte Wilcox on 05/23/23 08:44 UA Protein 0 mg/dL Last Edit by Devonte Wilcox on 05/23/23 08:44 UA pH 6.0 Last Edit by Devonte Wilcox on 05/23/23 08:44 UA Blood 0 Raj/uL Last Edit by [email or web address] Wilcox on 05/23/23 08:44 UA Specific [place] 1.025 Last Edit by Devonte Wilcox on 05/23/23 08:44 UA Ketone Negative Last Edit by Devonte Wilcox on 05/23/23 08:44 UA Bilirubin 0 mg/dL Last Edit by Devonte Wilcox on 05/23/23 08:44 UA Glucose 0 mg/dL Last Edit by Devonte Wilcox on 05/23/23 08:44 Results Reviewed Results Reviewed: Laboratory Last Values Urine pH (Auto) 6.0 05/23/23 08:34 Specific [place] (Auto) 1.025 05/23/23 08:34 Urine Protein (Auto) 0 mg/dL 05/23/23 08:34 Glucose (UA)(Auto) 0 mg/dL 05/23/23 08:34 Urine Ketones (Auto) Negative 05/23/23 08:34 Urine Blood (Auto) 0 Raj/uL 05/23/23 08:34 Urine Nitrite (Auto) Negative 05/23/23 08:34 Urine Bilirubin (Auto) 0 mg/dL 05/23/23 08:34 Urine Urobilinogen (Auto) 0.2 mg/dL 05/23/23 08:34 Leukocyte Esterase (Auto) 0 Ashley/uL 05/23/23 08:34 Date of Service: 05/04/23 EXAMINATION: US PELVIS LIMITED (BLADDER) FINDINGS: BLADDER: Well distended and normal. Bilateral ureteral jets are demonstrated. Prevoid bladder volume is 324 mL. Postvoid bladder volume is 19.4 mL. Enlarged prostate, volume 42 mL. IMPRESSION: 1. Normal sonographic appearance of the urinary bladder. 2. Enlarged prostate. 3. Post void bladder volume of 19.4 mL. Date of Service: 05/04/23 EXAMINATION: US ABDOMEN COMPLETE FINDINGS: PANCREAS: Normal. ABDOMINAL AORTA: The proximal, mid, and distal segments are normal in caliber. INFERIOR VENA CAVA: Visualized portions are normal. LIVER: The liver is normal in size. The liver contour is normal. Increased liver parenchymal echogenicity. No focal hepatic lesion. There is no intrahepatic biliary duct dilatation seen. GALLBLADDER: Normal. The gallbladder is physiologically distended without evidence of stones, sludge, polyps, wall thickening or pericholecystic fluid. COMMON BILE DUCT: Normal in caliber measuring 0.2 cm in diameter. RIGHT KIDNEY: Normal. No hydronephrosis. No renal calculi or focal parenchymal lesions. The kidney measures 10.3 cm in maximum dimension. LEFT KIDNEY: Normal. No hydronephrosis. No renal calculi or focal parenchymal lesions. The kidney measures 12.0 cm in maximum dimension. SPLEEN: Normal. The spleen measures 12.2 cm in maximum dimension. Splenule measuring up to 1.8 cm. FREE FLUID: None. IMPRESSION: Increased liver parenchymal echogenicity which is nonspecific but could be seen in the setting of hepatic steatosis or hepatocellular disease. Assessment & Plan Assessment & Plan (1) Nocturia: Code(s): R35.1 - Nocturia Plan In office urinalysis results reviewed with the patient today; as noted above. PVR 25mL. Recent retroperitoneal ultrasound results reviewed with the patient today; as noted above. Patient reports significant improvement in decreasing episodes of nocturia with lifestyle modifications of decreasing fluid intake 2-3 hours prior to bed. He currently denies any bothersome urinary issues or concerns. He reports be happy with current voiding parameters. Will obtain PSA in 6 months. Follow-up in 6 months with lab to be completed prior; or sooner with any issues, concerns, and or questions. Orders: Orders Prostate Specific Antigen 6 Months R35.1 - Nocturia AMB Urinalysis Automated Today Z13.9 - Encounter for screening, unspecified AMB Post Void Residual by ultrasound Today R35.1 - Nocturia Patient Instructions: The patient had an opportunity to ask questions regarding the treatment plan. All questions were answered. Physical exam, labs, and imaging were discussed and reviewed in detail. As well as risks, benefits, and discussion of treatment choices. No major barriers to understanding were identified. The patient expressed understanding and agreement with the above treatment plan. The patient was made aware they should contact our office by phone for worsening of their current condition, the appearance of new symptoms, or with any questions or concerns. Compliance is encouraged with any medications and follow up testing that is ordered. It is a privilege to be allowed the opportunity to participate in? your urological care.? Again, if you have any questions or concerns If you have any questions or concerns please do not hesitate to contact me. The office is [phone]. This note is constructed using voice recognition software. While every effort has been made to ensure accuracy investment executive errors may have been included. Yours sincerely, MARLIN Knott Coding Level of Care Code Est Pt Level 3 (96947) Diagnoses Nocturia R35.1 CPT Codes Post Residual Void - PVR CPT Code: 88890-Phcs Void Residual by ultrasound ([id number])
== END 2023-05-23 09:09 | disposition home or self-care (01) ==
PROVIDERS: PCP Nurse Practitioner Family; Visit Provider Nurse Practitioner Family
DX: Z13.9 Encounter for screening, unspecified (principal); R35.1 Nocturia
CPT/HCPCS: 99213

== ENCOUNTER → 2023-05-23 08:25 | Outpatient (BNVA) | payer BC, SELFPAY | PROVIDERS: PCP Nurse Practitioner Family; Visit Provider Nurse Practitioner Family | DX: R35.1 Nocturia (principal) | CPT/HCPCS: 51798; 81003 ==

== ENCOUNTER 2023-11-18 07:49 | Outpatient (REF) | payer BC, SELFPAY | END 2023-11-18 07:50 | disposition home or self-care (01) | LOC: HO.HMGCLDS 07:49 | PROVIDERS: PCP Nurse Practitioner Family; Visit Provider Nurse Practitioner Family | DX: R35.1 Nocturia (principal); Z12.5 Encounter for screening for malignant neoplasm of prostate | CPT/HCPCS: 36415; 84153 ==

== ENCOUNTER 2023-11-21 14:09 | Outpatient (AMB) | payer BC, SELFPAY ==
--- NOTE | 2023-11-21 14:12 | MHC.OFFVIS ---
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 Banks. He has a past medical history of glaucoma in back pain. He presents to the office today for a follow up of his lower urinary tract symptoms. In discussion with the patient today he reports to be doing and feeling well. He reports feeling since his last office visit here 6 months ago he has had no bothersome urinary issues or concerns however he does discuss noting a curvature to his penis. Reports this has been present since prior appointment however did not address this as he felt and was hoping it would get better on its own however it has not. Previous workup has included a retroperitoneal ultrasound noting bilateral kidneys with no calculi, lesions, and or hydronephrosis noted. The bladder is well distended and normal. Bilateral ureteral jets are demonstrated. Pre void bladder volume is approximately 320 mL. Postvoid bladder volume is approximately 20 mL. Enlarged prostate at approximately 40 mL. He otherwise denies urinary urgency, urinary frequency, incontinence, nocturia, hematuria, dysuria, foul smelling urine, changes to urinary stream, flank pain, fever, and or chills. He is happy with his current voiding parameters. In office urinalysis results reviewed with the patient today. PVR 26 mL. He otherwise offers no other issues or concerns at this time. PSAs are as follows: 01/31 0.3, 12/02 0.3 PFSH Medical History Fatty liver Low back pain Glaucoma Surgical History H/O colonoscopy Family History Father Pancreatic cancer Social History Housing: House Are you a primary care advocate to a significant other at home: No Do you presently have visiting nurse or other home services: No Patient Tobacco Use Status: Never used Tobacco e-Cigarette/Vaping Use: Never Used Second Hand Smoke Exposure: No service: No Current occupational status: employed Current occupation: [employer] Current occupational exposures/hazards: No Review of Systems Const All systems reviewed & are unremarkable except as noted in HPI and below Physical Exam Const General: cooperative, healthy appearing, comfortable, no acute distress, well developed, alert and awake Orientation/consciousness: patient oriented x3 Limitations: no limitations HEENT Head: Yes normal to inspection, Yes normocephalic and Yes atraumatic Ears: hearing grossly normal bilaterally Eyes General: appearance normal, both eyes and all related structures Neck Neck: Yes normal visual inspection and Yes trachea midline Chest Chest palpation & inspection: normal inspection of the chest Resp Effort & Inspection: normal respiratory effort and able to speak in complete sentences Cardio Rate: regular rate GI Inspection: Yes normal to inspection General: Yes no CVA tenderness Back/Spine/Pelvis Back: no CVA tenderness Skin General skin exam: no rashes or lesions noted Neuro General: patient oriented x3 Extrem General: Yes normal to inspection Psych Appearance: grossly normal and well kempt Mental Status: mental status grossly normal Speech and movement: Normal speech and movement present and Clear speech present Affect: normal affect Attitude: cooperative Thought process: Normal thought process present Thought content: Normal thought content present Insight: Fair insight present (Psych) Judgement: Fair judgement present (Psych) Office Procedures Post Void Residual Post Residual Void Post Void Residual (PVR): 26 [id number] Void Residual by ultrasound Results AMB Urinalysis, Automated UA Leukoctes 0 Ashley/uL Last Edit by Devonte Wilcox on 11/21/23 14:30 UA Nitrite Last Edit by Devonte Wilcox on 11/21/23 14:30 UA Urobilinogen 0.2 mg/dL Last Edit by Devonte Wilcox on 11/21/23 14:30 UA Protein 0 mg/dL Last Edit by Devonte Vieyrasimin on 11/21/23 14:30 UA pH 5.5 Last Edit by Devonte Wilcox on 11/21/23 14:30 UA Blood 0 Raj/uL Last Edit by Devonte Wilcox on 11/21/23 14:30 UA Specific [place] 1.030 Last Edit by Devonte Wilcox on 11/21/23 14:30 UA Ketone Last Edit by Devonte Wilcox on 11/21/23 14:30 UA Bilirubin 0 mg/dL Last Edit by Devonte Wilcox on 11/21/23 14:30 UA Glucose 0 mg/dL Last Edit by Devonte Wilcox on 11/21/23 14:30 Results Reviewed Results Reviewed: Laboratory Last Values Urine pH (Auto) 5.5 11/21/23 14:19 Specific [place] (Auto) 1.030 11/21/23 14:19 Urine Protein (Auto) 0 mg/dL 11/21/23 14:19 Glucose (UA)(Auto) 0 mg/dL 11/21/23 14:19 Urine Blood (Auto) 0 Raj/uL 11/21/23 14:19 Urine Bilirubin (Auto) 0 mg/dL 11/21/23 14:19 Urine Urobilinogen (Auto) 0.2 mg/dL 11/21/23 14:19 Leukocyte Esterase (Auto) 0 Ashley/uL 11/21/23 14:19 Assessment & Plan Assessment & Plan (1) Nocturia: Code(s): R35.1 - Nocturia Category: Medical (2) Peyronie's disease: Code(s): N48.6 - Induration penis plastica Category: Medical Plan In office urinalysis results reviewed with the patient today; as noted above. PVR 26 mL. Discussed lifestyle modifications to assist with nocturia although patient only experiencing nocturia 1 time per night. Discussed at length potential causes and treatment options of Peyronie's disease Information provided Start Cialis, pentoxifylline, and vitamin-E as discussed and prescribed. Patient reports be happy with current voiding parameters. Discussed bladder triggers/irritants. Follow-up in 3 months; if not sooner with any issues, concerns, and or questions. Orders: Orders AMB Urinalysis Automated Today Z13.9 - Encounter for screening, unspecified AMB Post Void Residual by ultrasound Today R35.1 - Nocturia Medications: New tadalafil (Cialis) [id number] [facility] [id number] Member [id number] 5 mg PO DAILY PRN 90 tabs 1RF sexual activity 90 days pentoxifylline ER administer with meals 400 mg PO BID 180 tabs 1RF 90 days vitamin E (dl, acetate) 450 mg PO DAILY 90 caps 1RF 90 days N48.6 - Induration penis plastica Patient Instructions: The patient had an opportunity to ask questions regarding the treatment plan. All questions were answered. Physical exam, labs, and imaging were discussed and reviewed in detail. As well as risks, benefits, and discussion of treatment choices. No major barriers to understanding were identified. The patient expressed understanding and agreement with the above treatment plan. The patient was made aware they should contact our office by phone for worsening of their current condition, the appearance of new symptoms, or with any questions or concerns. Compliance is encouraged with any medications and follow up testing that is ordered. It is a privilege to be allowed the opportunity to participate in? your urological care.? Again, if you have any questions or concerns If you have any questions or concerns please do not hesitate to contact me. The office is [phone]. This note is constructed using voice recognition software. While every effort has been made to ensure accuracy superintendent terminal errors may have been included. Yours sincerely, MARLIN Knott Coding Level of Care Code Est Pt Level 4 (55003) Diagnoses Nocturia R35.1 Peyronie's disease N48.6 CPT Codes Post Residual Void - PVR CPT Code: [id number] Void Residual by ultrasound ([id number])
== END 2023-11-21 15:04 | disposition home or self-care (01) ==
PROVIDERS: PCP Nurse Practitioner Family; Visit Provider Nurse Practitioner Family
DX: R35.1 Nocturia (principal); N48.6 Induration penis plastica; Z13.9 Encounter for screening, unspecified
CPT/HCPCS: 99214

== ENCOUNTER → 2023-11-21 14:09 | Outpatient (BNVA) | payer BC, SELFPAY | PROVIDERS: PCP Nurse Practitioner Family; Visit Provider Nurse Practitioner Family | DX: R35.1 Nocturia (principal); N48.6 Induration penis plastica | CPT/HCPCS: 51798; 81003 ==

== ENCOUNTER 2024-05-23 08:06 | Outpatient (AMB) | payer BC, SELFPAY ==
[2024-05-23 09:09] VITALS: BP 128/76; PULSE 62; TEMP 36.6; O2SAT 95; BMI 32.9
--- NOTE | 2024-05-23 09:10 | AM.OFFWIN_ITS ---
Intake Vital Signs 05/23/24 09:09 Height 5 ft 9 in Weight 222 lb 8 oz BMI 32.9 BP 128/76 Blood Pressure Location Lt brachial Position Sitting Pulse 62 Pulse Source Pulse Oximeter Temp 98 F Temp Source Oral Pulse Oximetry (%) 95 Oxygen Delivery Method Room Air Intake Visit Reasons: EP pain on both shoulders Patient Tobacco Use Status: Never used Tobacco Allergies No Known Allergies [No Known Allergies*] Allergy (Verified 05/23/24 09:09) Medication List - Last Reconciled 05/23/24 by Sander Mario MD atorvastatin 20 mg PO BEDTIME 90 days latanoprost 0.005% 1 drp ophthalmic (eye) BEDTIME pentoxifylline ER 400 mg PO BID 90 days tadalafil (Cialis) 5 mg PO DAILY PRN 90 days vitamin E (dl, acetate) 450 mg PO DAILY 90 days HPI EP pain on both shoulders HPI Details Chief Complaint The patient presents with increasing shoulder pain, primarily affecting the left arm more than the right, worsening over the last month. Has worked in construction but retired now History of Present Illness - The patient is a 64-year-old male pres enting with exacerbated shoulder pain. - Pain is primarily located in the left shoulder, more than the right, increasing over the past month. - Described as soreness, particularly wh en moving the arm to the back or raising it. - No prior medical treatment pursued; no NSAIDs used or significant interventions conducted. - Engaged in minimal physical activities as he is retired from construction work; however, minor stretches at the gym have been attempted without relief. - No recent primary care follow-up until the scheduled appointment next month. Patient Instructions - Take the prescribed pain and anti-infl ammatory medication twice daily with food. Only for 10 days, normal creatinine last set of labs - Monitor for and stop the medication if you experience heartburn or other gastrointestinal issues. - Follow up with your primary care provi giovanna next month for reassessment. And repeat labs again to ensure stability of renal function - Avoid strenuous activities involving t he shoulder until further evaluation. Review of Systems - Musculoskeletal: Reports worsening lef t shoulder pain over the past month, more pronounced than the right side. Constitutional: No fever no chills Respiratory: no Cough, no shortness a breath Cardiovascular: no palpitations, no chest pains gastrointestinal: No nausea no vomiting no diarrhea RESIDENCE DIRECTOR: No headache no blurring of vision skin: No rash extremities: As per history PFSH Medical History Fatty liver Low back pain Glaucoma Surgical History H/O colonoscopy Family History Father Pancreatic cancer Social History Housing: House Are you a primary career guidance technician to a significant other at home: No Do you presently have visiting nurse or other home services: No Patient Tobacco Use Status: Never used Tobacco e-Cigarette/Vaping Use: Never Used Second Hand Smoke Exposure: No service: No Current occupational status: employed Current occupation: [employer] Current occupational exposures/hazards: No Physical Exam Vital Signs: Last Vital Signs Temp 98 F 05/23/24 09:09 Pulse 62 05/23/24 09:09 BP 128/76 05/23/24 09:09 Pulse Ox 95 05/23/24 09:09 Oxygen Delivery Method Room Air 05/23/24 09:09 BMI result Body Mass Index 32.9 Const General: no acute distress Orientation/consciousness: patient oriented x3 Eyes General: appearance normal, both eyes and all related structures Resp Effort & Inspection: normal respiratory effort and able to speak in complete sentences Auscultation: clear to auscultation bilaterally Cardio Other: S1 S2 Neuro General: patient oriented x3 Extrem Other: Both shoulder with full range of motion however feels sore to move Psych Mental Status: mental status grossly normal Assessment & Plan Assessment & Plan (1) Decreased GFR: Code(s): R94.4 - Abnormal results of kidney function studies Plan Chief Complaint The patient presents with increasing shoulder pain, primarily affecting the left arm more than the right, worsening over the last month. Has worked in construction but retired now History of Present Illness - The patient is a 64-year-old male presenting with exacerbated shoulder pain. - Pain is primarily located in the left shoulder, more than the right, increasing over the past month. - Described as soreness, particularly when moving the arm to the back or raising it. - No prior medical treatment pursued; no NSAIDs used or significant interventions conducted. - Engaged in minimal physical activities as he is retired from construction work; however, minor stretches at the gym have been attempted without relief. - No recent primary care follow-up until the scheduled appointment next month. Patient Instructions - Take the prescribed pain and anti-inflammatory medication twice daily with food. Only for 10 days, normal creatinine last set of labs, repeat renal function prior to taking medication order placed - Monitor for and stop the medication if you experience heartburn or other gastrointestinal issues. - Follow up with your primary care provider next month for reassessment. - Avoid strenuous activities involving the shoulder until further evaluation. Orders: Orders Basic Metabolic Panel Today R94.4 - Abnormal results of kidney function studies Medications: New diclofenac sodium 75 mg PO BID 10 days 20 tabs 0RF pain Coding Level of Care Code Est Pt Level 3 (32778) Diagnoses Decreased GFR R94.4
== END 2024-05-23 09:21 | disposition home or self-care (01) ==
PROVIDERS: PCP Nurse Practitioner Family; Visit Provider Internal Medicine
DX: R94.4 Abnormal results of kidney function studies (principal)

== ENCOUNTER 2024-05-23 08:06 | Outpatient (REF) | payer BC, SELFPAY ==
[2024-05-23 14:18] LABS: Anion Gap 10 (12-20); Blood Urea Nitrogen 19 mg/dL (9-16); Calcium 9.6 mg/dL (8.4-10.2); Carbon Dioxide 30 mmol/L (22-29); Chloride 103 mmol/L (96-108); Estimated Glomerular Filt Rate > 60; Glucose Random 161 mg/dL (60-115); Sodium 139 mmol/L (135-145)
== END 2024-05-23 08:07 | disposition home or self-care (01) ==
LOC: HO.HMGCLDS 08:06
PROVIDERS: PCP Nurse Practitioner Family; Visit Provider Internal Medicine
DX: R94.4 Abnormal results of kidney function studies (principal)
CPT/HCPCS: 36415; 80048

== ENCOUNTER 2024-06-18 07:02 | Outpatient (REF) | payer BC, SELFPAY ==
--- NOTE | ~2024-06-18 | US_ITS ---
EXAMINATION: US EXTRACRANIAL CAROTID DUPLEX, BILATERAL CLINICAL INFORMATION: Occlusion and stenosis, unspecified carotid arteries. COMPARISON: None available. TECHNIQUE: Real-time ultrasound and Doppler techniques (integrating B-mode 2-D vascular images, Doppler spectral analysis and color-flow Doppler imaging) were utilized to interrogate the extracranial carotid arteries, the vertebral arteries and proximal subclavian arteries bilaterally. The degree of stenosis is determined by criteria similar to NASCET. FINDINGS: Right Side: 1. There is calcified atherosclerotic plaque seen in the bifurcation/proximal ICA region. 2. The common carotid artery PSV proximally is 128 cm/s and distally 88 cm/s. 3. The proximal internal carotid artery velocities are 68-81 cm/s systolic and 28 cm/s diastolic. 4. The proximal external carotid artery PSV is 71 cm/s. 5. The vertebral artery shows antegrade flow. 6. The subclavian artery waveforms are triphasic. Left Side: 1. There is irregular calcified atherosclerotic plaque seen in the bifurcation/proximal ICA region. 2. The common carotid artery PSV proximally is 94 cm/s and distally 76 cm/s. 3. The proximal internal carotid artery velocities are 76-87 cm/s systolic and 16-26 cm/s diastolic. 4. The proximal external carotid artery PSV is 121 cm/s. 5. The vertebral artery shows antegrade flow. 6. The subclavian artery waveforms are triphasic. US/US carotid duplex BI IMPRESSION: 1. RIGHT: 0-49% stenosis by ultrasound criteria. Calcified plaque. 2. LEFT: 0-49% stenosis by ultrasound criteria. Irregular calcified plaque. Electronically signed by: Shai Carias MD 06/18/2024 12:23 PM EDT
[2024-06-18 10:21] LABS: MANUAL DIFF FLAG NO
[2024-06-18 10:25] LABS: Basophils Absolute Auto 0.1 X10*3/uL (0.0-0.2); Basophils Percent Auto 0.8 % (0-2); Eosinophils Absolute Auto 0.1 X10*3/uL (0.0-0.4); Eosinophils Percent Auto 2.1 % (0-4); Hematocrit 46.9 % (42.0-52.0); Hemoglobin 16.2 g/dl (14.0-18.0); Imm Gran Abs Auto 0.01 X10*3/uL (0.00-0.03); Imm Gran Pct Auto 0.2 % (0.0-0.4); Lymphocytes Absolute Auto 1.8 X10*3/uL (1.2-4.9); Lymphocytes Percent Auto 27.3 % (20-40); Mean Corpuscular HGB Conc 34.5 g/dl (31.0-36.0); Mean Corpuscular Hemoglobin 30.9 pg (27.0-33.0); Mean Corpuscular Volume 89.3 fL (80.0-98.0); Mean Platelet Volume 9.8 fL (9.4-12.4); Monocytes Absolute Auto 0.5 X10*3/uL (0.1-1.2); Neutrophils Absolute Auto 4.1 x10*3/uL (2.0-8.3); Neutrophils Percent Auto 62.6 % (45-73); Platelet Count 219 X10*3/uL (160-400); Red Blood Count 5.25 X10*6/uL (4.60-5.80); Red Cell Distribution Width 12.3 % (11.0-16.0); White Blood Count 6.6 X10*3/uL (4.8-10.8)
[2024-06-18 10:53] LABS: Alanine Aminotransferase 35 U/L (0-40); Albumin Level 4.3 g/dL (3.5-5.0); Alkaline Phosphatase 80 U/L (39-117); Anion Gap 11 (12-20); Aspartate Amino Transferase 33 U/L (5-37); Bilirubin Total 0.7 mg/dL (0.0-1.0); Blood Urea Nitrogen 15 mg/dL (9-16); Calcium 9.2 mg/dL (8.4-10.2); Carbon Dioxide 30 mmol/L (22-29); Chloride 106 mmol/L (96-108); Cholesterol 161 mg/dL (<200); Estimated Glomerular Filt Rate > 60; Glucose Fasting 104 mg/dL (60-99); HDL Cholesterol 54 mg/dL (>40); LDL Cholesterol Calculated 79 mg/dL (<100); Potassium 4.5 mmol/L (3.3-5.1); Sodium 142 mmol/L (135-145); Triglycerides 143 mg/dL (<150)
[2024-06-18 11:02] LABS: Prostate Specific Antigen Scr 0.34 ng/mL (<0.05-4.0)
[2024-06-18 11:05] LABS: Appearance Urine Clear; Color Urine Yellow; Glucose Urine UA Negative (Negative); Leukocyte Esterase Urine Negative (Negative); Nitrite Urine Negative (Negative); PH 5.5 (5.0-9.0); Specific Gravity - Urine 1.015 (1.005-1.025); Urine Blood Negative (Negative); Urine Ketones Negative (Negative); Urine Protein Negative (Neg-Trace)
== END 2024-06-18 07:03 | disposition home or self-care (01) ==
LOC: HO.HMGCX 07:02
PROVIDERS: PCP Nurse Practitioner Family; Visit Provider Nurse Practitioner Family
DX: I65.23 Occlusion and stenosis of bilateral carotid arteries (principal); Z12.5 Encounter for screening for malignant neoplasm of prostate; Z00.00 Encounter for general adult medical examination without abnormal findings
CPT/HCPCS: 36415; 80053; 80061; 81003; 84153; 84443; 85025; 93880

== ENCOUNTER → 2024-06-18 10:19 | Outpatient (BNV) | payer BC, SELFPAY | PROVIDERS: PCP Nurse Practitioner Family; Visit Provider Radiology Diagnostic Radiology | DX: I65.29 Occlusion and stenosis of unspecified carotid artery (principal) | CPT/HCPCS: 93880 ==

== ENCOUNTER 2024-06-20 14:19 | Outpatient (AMB) | payer BC, SELFPAY ==
[2024-06-20 14:24] VITALS: BP 122/80; PULSE 80; TEMP 36.6; O2SAT 98; BMI 32.3
--- NOTE | 2024-06-20 14:24 | MHC.PC.OV ---
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 Accompanied by: Self / Same As Patient Allergies No Known Allergies [No Known Allergies*] Allergy (Verified 06/20/24 14:25) Medication List - Last Reconciled 06/20/24 by HEYDI Freed-JOHNSON atorvastatin 20 mg PO BEDTIME 90 days diclofenac sodium 75 mg PO BID 30 days latanoprost 0.005% 1 drp ophthalmic (eye) BEDTIME pentoxifylline ER 400 mg PO BID 90 days tadalafil (Cialis) 5 mg PO DAILY PRN 90 days vitamin E (dl, acetate) 450 mg PO DAILY 90 days Tobacco use date assessed: 06/20/24 Dental Screening Dental Screen Date: 06/20/24 Did you have a dental visit in the last 12 months?: Yes Did you have a dental problem in the last 6 months where you did not have access to dental care?: No Was dental information given to patient?: Patient has dentist HPI Annual PE HPI Details History of Present Illness The patient is a 64-year-old male presenting with bilateral shoulder pain. This pain has been persistent despite treatment with NSAIDs, and it is affecting his range of motion. The patient has been retired from a long career as an licensed journeyman electrician. Objective findings: positive Maldonado test for both shoulders, but negative Near's and Jocelyne's tests, indicating possible arthritis/impingement. pain also reported to base of right thumb. XR will be ordered He has a history of Peyronie's Disease with regular follow-ups in urology and reports erectile dysfunction. Cancer screening measures including colonoscopy and PSA are up-to-date; PSA remains in normal ranges. His recent laboratory results indicate hyperglycemia with a fasting blood sugar of 104 mg/dL. The patient has made lifestyle modifications by adjusting his diet and ceasing alcohol consumption to address these levels. Health Maintenance - Colon cancer screening is up-to-date. - Prostate-specific antigen (PSA) screening is current and within normal limits. - Lifestyle modification undertaken for hyperglycemia includes dietary changes and cessation of alcohol consumption. Social History - Retired licensed journeyman electrician - Abstains from alcohol, consumes non-alcoholic beer - Actively working on dietary changes Review of Systems - Constitutional: Denies fevers, chills - Gastrointestinal: Denies nausea, vomiting, blood in stool, constipation, diarrhea - Respiratory: Denies shortness of breath - Musculoskeletal: Reports ongoing bilateral shoulder pain; denies popping or clicking in the shoulders. - Psychiatric: Denies suicidal or homicidal ideation. Physical Exam General: Cooperative, healthy appearing, comfortable, no acute distress and well developed Orientation: Patient oriented x3 Limitations: Discomfort with range of motion in bilateral shoulders Head: Normal to inspection Ears: Hearing grossly normal bilaterally Nose: Normal external nose present Face and sinus: Normal facial exam Eyes: Appearance normal, both eyes and all related structures Neck: Normal visual inspection and Yes full ROM Respiratory: Normal respiratory effort and able to speak in complete sentences. Clear to auscultation bilaterally Cardiovascular: Regular rate and rhythm. Normal S1 and S2 GI: Normal to inspection. Soft to palpation and nontender Skin: No rashes or lesions noted Neuro: Patient oriented x3 Extremities: Positive Maldonado bilaterally, negative Neer's bilaterally, negative Jocelyne's test, good strength but discomfort with range of motion in bilateral shoulders. discomfort to base of right thumb with ROM, especially against resistance. Results - Labs: Fasting blood sugar 104 mg/dL, demonstrating slight hyperglycemia. - Tests: PSA within normal limits. Plan We will proceed with X-ray imaging of both shoulders to better evaluate the underlying causes of the pain in light of the positive Maldonado test. The patient will maintain his management plan for Peyronie's Disease and erectile dysfunction, with continuing regular consultations in urology deemed sufficient at this time. His PSA remains within normal limits, and no further intervention is needed currently on this front. Continuation of dietary adjustments and abstaining from alcohol is advised to manage his hyperglycemia proactively and keep glucose levels within target ranges. Discussion Notes I discussed with the patient the implications of the positive Maldonado test and the need for bilateral shoulder X-rays to determine potential causes of pain. Continued management and follow-up are recommended through urology for Peyronie's Disease and erectile dysfunction. Further, given well-controlled PSA, there is no recommendation for adjunctive urological interventions. I emphasized the importance of lifestyle changes for hyperglycemia management, which he appears to be following with dietary modifications and reduced alcohol intake. Patient Instructions - Proceed with scheduled shoulder X-rays. - Continue current diet and abstention from alcohol to manage blood sugar levels. - Continue regular follow-ups with urology for Peyronie's Disease and erectile dysfunction. - Report if symptoms worsen or new symptoms develop. [facility] Medical History (Reviewed 06/20/24 @ 15:29 by Marquise Banks [facility]) Fatty liver Low back pain Glaucoma Surgical History H/O colonoscopy Family History Father Pancreatic cancer Social History Housing: House Are you a primary child care cook to a significant other at home: No Do you presently have visiting nurse or other home services: No Patient Tobacco Use Status: Never used Tobacco e-Cigarette/Vaping Use: Never Used Second Hand Smoke Exposure: No service: No Current occupational status: employed Current occupation: [employer] Current occupational exposures/hazards: No Cognitive needs: No Hearing needs: No Vision needs: No Questionnaire PHQ-9 Over the last 2 weeks, how often have you been bothered by any of the following problems? 1. Little interest or pleasure in doing things: not at all 2. Feeling down, depressed, or hopeless: not at all 3. Trouble falling or staying asleep, or sleeping too much: not at all 4. Feeling tired or having little energy: not at all 5. Poor appetite or overeating: not at all 6. Feeling bad about yourself - or that you are a failure or have let yourself or your family down: not at all 7. Trouble concentrating on things, such as reading the newspaper or watching television: not at all 8. Moving or speaking so slowly that other people could have noticed. Or the opposite - being so fidgety or restless that you have been moving around a lot more than usual: not at all 9. Thoughts that you would be better off or of hurting yourself in some way: not at all Total score: 0 Depression Screening Interpretation: Negative Depression Screening Done: Yes 18025 - PHQ-9 Billing: Yes Source: Developed by Drs. Celso Page, Bipin King and colleagues, with an educational chacha from [employer]. Thrive Questionnaire Date Thrive assessed: 06/13/24 I am a: Patient What is your living situation today?: I have a steady place to live Within the past 12 months, did the food you bought not last and you didn't have the money to get more?: Never true Within the past 12 months, did you worry whether your food would run out before you got money to buy more?: Never true Do you have trouble paying for medicines?: No Do you have trouble getting transportation to medical appointments?: No Do you have trouble paying your heating and electricity bill?: No Do you have trouble taking care of your child, family member or friend?: No Do you have trouble with day-to-day activities such as bathing, preparing meals, shopping, managing finances, etc.?: No Are you currently unemployed and looking for a job?: No Are you interested in more education?: No Please select the resources that you would like help with: None Currently or been in a relationship where the following occur: No concerns reported THRIVE Score: 0 AUDIT C Alcohol Use Questionnaire (AUDIT-C) 1. How often do you have a drink containing alcohol?: Never 3. How often do you have six or more drinks on one occasion?: Never Total Score: 0 Score Reviewed/Action Taken: Yes COLLEEN-7 AMB Questionnaire COLLEEN-7 Date COLLEEN - 7 assessed: 06/20/24 Feeling nervous, anxious, or on edge: 0 = Not at all Not being able to stop or control worryin = Not at all Worrying too much about different things: 0 = Not at all Trouble relaxin = Not at all Being so restless that it is hard to sit still: 0 = Not at all Becoming easily annoyed or irritable: 0 = Not at all Feeling afraid as if something awful might happen: 0 = Not at all Total COLLEEN-7 score (0-4 normal; 5-9 mild; 10-14 moderate; 15-21 severe): 0 Source: Developed by Adriana Morales Kurt Kroenke and colleagues, with an educational chacha from [employer]. COLLEEN-7 Assessment Billing COLLEEN-7 Assessment Tool: COLLEEN-7 Assessment 80635 Physical exam (Primary Care) Vital Signs: Last Vital Signs Temp 97.8 F 06/20/24 14:24 Pulse 80 06/20/24 14:24 BP 122/80 06/20/24 14:24 Pulse Ox 98 06/20/24 14:24 BMI result Body Mass Index 32.3 Tobacco/Smoking Status: Tobacco use Status Tobacco use date assessed 06/20/24 06/20/24 14:29 Patient Tobacco Use Status Never used Tobacco 06/20/24 14:29 e-Cigarette/Vaping Use Never Used 06/20/24 14:29 PHQ-9: PHQ-9 Score PHQ-9: Total score 0 06/20/24 14:29 Depression Screening Interpretation: Negative Thrive Assessment: Date of Thrive Assessment Date Thrive assessed 06/13/24 06/20/24 14:29 Currently or been in a relationship where the following occur: No concerns reported Coding Level of Care Code Est Pt Prev Care 40-64y(87312) Diagnoses Bilateral shoulder pain M25.511; M25.512 Pain of right thumb M79.644 Physical exam Z00.00 Additional Codes COLLEEN-7 Assessment Billing - COLLEEN-7 Assessment Tool: COLLEEN-7 Assessment 68549 ([id number]) PHQ-9 - 84052 - PHQ-9 Billing: Yes ([id number]) Assessment & Plan Assessment & Plan (1) Bilateral shoulder pain: Code(s): M25.511 - Pain in right shoulder; M25.512 - Pain in left shoulder Category: Medical (2) Pain of right thumb: Code(s): M79.644 - Pain in right finger(s) Category: Medical (3) Physical exam: Code(s): Z00.00 - Encounter for general adult medical examination without abnormal findings Category: Medical Plan . Orders: Orders XR finger RT min 2V Today M79.644 - Pain in right finger(s) XR shoulder LT min 2V Today M25.511 - Pain in right shoulder, M25.512 - Pain in left shoulder XR shoulder RT min 2V Today M25.511 - Pain in right shoulder, M25.512 - Pain in left shoulder
== END 2024-06-20 15:24 | disposition home or self-care (01) ==
LOC: HO.HMCC 14:20
PROVIDERS: PCP Nurse Practitioner Family; Visit Provider Nurse Practitioner Family
DX: M25.511 Pain in right shoulder (principal); M25.512 Pain in left shoulder; M79.644 Pain in right finger(s); Z00.00 Encounter for general adult medical examination without abnormal findings

== ENCOUNTER → 2024-06-20 14:19 | Outpatient (BNVA) | payer BC, SELFPAY | PROVIDERS: PCP Nurse Practitioner Family; Visit Provider Nurse Practitioner Family | DX: Z00.00 Encounter for general adult medical examination without abnormal findings (principal); M25.511 Pain in right shoulder; M25.512 Pain in left shoulder; M79.644 Pain in right finger(s) | CPT/HCPCS: 96127 ==

== ENCOUNTER 2024-06-21 08:26 | Outpatient (REF) | payer BC, SELFPAY ==
--- NOTE | ~2024-06-21 | XR_ITS ---
CLINICAL HISTORY: M25.511 - Pain in right shoulder 4 view right shoulder Comparison: None Findings: Bones intact. No dislocations. There are moderate degenerative changes of the acromioclavicular joint. No erosions. No radiopaque foreign body. IMPRESSION: 1. No acute findings This document has been electronically signed by: Michael Villeda MD on 06/22/2024 09:01:09
--- NOTE | ~2024-06-21 | XR_ITS ---
CLINICAL HISTORY: Pain in left shoulder. 4 view left shoulder Comparison: None Findings: Bones intact. No dislocations. There are moderate degenerative changes of the acromioclavicular joint. No erosions. No radiopaque foreign body. IMPRESSION: 1. No acute findings This document has been electronically signed by: Michael Villeda MD on 06/22/2024 09:01:34
--- NOTE | ~2024-06-21 | XR_ITS ---
CLINICAL HISTORY: M79.644 - Pain in right finger(s) 3 view right 1st digit Comparison: None Findings: Bones intact. No dislocations. There are moderate to severe degenerative changes at the basilar joint. No erosions. No radiopaque foreign body. IMPRESSION: There are moderate to severe degenerative changes at the basilar joint. This document has been electronically signed by: Michael Villeda MD on 06/22/2024 09:01:55
== END 2024-06-21 08:27 | disposition home or self-care (01) ==
LOC: HO.HMGCX 08:26
PROVIDERS: PCP Nurse Practitioner Family; Visit Provider Nurse Practitioner Family
DX: M25.511 Pain in right shoulder (principal); M25.512 Pain in left shoulder; M79.644 Pain in right finger(s)
CPT/HCPCS: 73030; 73140

== ENCOUNTER → 2024-06-21 08:35 | Outpatient (BNV) | payer BC, SELFPAY | PROVIDERS: PCP Nurse Practitioner Family; Visit Provider Radiology Diagnostic Radiology | DX: M25.512 Pain in left shoulder (principal); M25.511 Pain in right shoulder; M18.11 Unilateral primary osteoarthritis of first carpometacarpal joint, right hand | CPT/HCPCS: 73030; 73140 ==

== ENCOUNTER 2024-07-23 08:46 | Outpatient (REF) | payer BC, SELFPAY ==
--- NOTE | ~2024-07-23 | XR_ITS ---
EXAMINATION: XR HAND, RIGHT CLINICAL INFORMATION: M79.641 - Pain in right hand COMPARISON: None available. TECHNIQUE: PA, lateral, and oblique views of the right hand. FINDINGS: There is mild loss of PIP and DIP joint space with minimal periarticular spurring involving first through fifth digit. No bony erosive changes seen. No fracture or dislocation. The soft tissues are normal. XR/XR hand RT min 3V IMPRESSION: Osteoarthritic changes PIP and DIP joints. No visible acute fracture or dislocation seen. Electronically signed by: Ramos Ge MD 07/24/2024 08:13 AM EDT
== END 2024-07-23 08:47 | disposition home or self-care (01) ==
LOC: HO.HOSX 08:46
DX: M79.641 Pain in right hand (principal)
CPT/HCPCS: 73130

== ENCOUNTER 2024-07-23 15:06 | Outpatient (AMB) | payer BC, SELFPAY ==
--- NOTE | 2024-07-23 15:13 | MHC.OFFVIS ---
Vital Signs 07/23/24 15:15 Height 5 ft 9 in Weight 210 lb BMI 31.0 Handedness Right Intake Visit Reasons: INCOMING INSPECTOR-RT thumb, RT hand/ limited ROM losing strength Intake Note: Rajat is a 64 year old right hand dominant male who presents today as a new patient for evaluation of right thumb pain. Denies clicking, numbness and tingling. Patient reports pain at his 1th MCP of the right hand. 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 Tylenol and ibuprofen no longer offer relief. Would be interested in injection today if necessary. Allergies No Known Allergies [No Known Allergies*] Allergy (Verified 07/23/24 15:15) HPI HPI INCOMING INSPECTOR-RT thumb, RT hand/ limited ROM losing strength: Details: Rajat is a 64 year old right hand dominant male who presents today as a new patient for evaluation of right thumb pain. Denies clicking, numbness and tingling. Patient reports pain at his 1th MCP of the right hand. 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 Tylenol and ibuprofen no longer offer relief. Would be interested in injection today if necessary. [facility] Medical History Fatty liver Low back pain Glaucoma Surgical History H/O colonoscopy Family History Father Pancreatic cancer Social History (Updated 07/23/24 @ 15:16 by JIMBO Medeiros) Housing: House Are you a primary career development specialist to a significant other at home: No Do you presently have visiting nurse or other home services: No Patient Tobacco Use Status: Never used Tobacco e-Cigarette/Vaping Use: Never Used Second Hand Smoke Exposure: No service: No Current occupational status: retired Current occupational exposures/hazards: No Cognitive needs: No Hearing needs: No Vision needs: No Review of Systems Const All systems reviewed & are unremarkable except as noted in HPI and below Physical Exam Vital Signs: BMI result Body Mass Index 31.0 Extrem Other: Patient is alert, oriented, and in no acute distress. Neuro: Normal sensation of the tips of all digits of the right hand at this time Vascular: Cap refill brisk Pain: Tenderness to palpation about the MCP joint of the right thumb No tenderness to palpation about the CMC joint or radial styloid of right thumb Minimal pain with CMC grind ROM: Patient is able to make a closed fist and extend all digits of the right hand fully and without difficulty Skin: No lacerations or abrasions. General: No ecchymosis, erythema, or evidence of infection. Psych: Appears grossly normal Affect normal Attitude cooperative Results Reviewed Results Reviewed: X-rays obtained in the office today and independently reviewed by me, Gorge Robertson PA-C, demonstrate moderate to severe osteoarthritis of both the CMC and MCP joints of the right thumb. Assessment & Plan Assessment & Plan (1) Pain of right thumb: Code(s): M79.644 - Pain in right finger(s) Category: Medical (2) Osteoarthritis of right thumb: Code(s): M18.11 - Unilateral primary osteoarthritis of first carpometacarpal joint, right hand Category: Medical Plan 1. Osteoarthritis of right thumb CMC and MCP affected, only MCP symptomatic at this time Patient is educated about this condition Patient is educated about the treatment options available At this time, patient was provided with a comfort cool thumb spica brace and a referral to occupational therapy to work on range of motion and strengthening of the right hand Patient was educated that injections into the MCP joint would have to be done under x-ray guidance and by Dr. Kuo Patient was educated that we should start with conservative pain management measures prior to any injections, as these injections can be quite difficult Patient was amenable to this plan Follow-up as needed with any acute concerns Orders: Orders OT Evaluation and Treatment Today M79.644 - Pain in right finger(s) XR hand RT min 3V Today M79.641 - Pain in right hand Coding Level of Care Code New Pt Level 3 (00747) Diagnoses Pain of right thumb M79.644 Osteoarthritis of right thumb M18.11
[2024-07-23 15:15] VITALS: BMI 31.0
== END 2024-07-23 15:45 | disposition home or self-care (01) ==
LOC: HO.HOS 15:06
PROVIDERS: PCP Nurse Practitioner Family
DX: M79.644 Pain in right finger(s) (principal); M18.11 Unilateral primary osteoarthritis of first carpometacarpal joint, right hand
CPT/HCPCS: 99203

== ENCOUNTER → 2024-07-23 15:08 | Outpatient (BNV) | payer BC, SELFPAY | PROVIDERS: Visit Provider Radiology Diagnostic Radiology | DX: M19.041 Primary osteoarthritis, right hand (principal) | CPT/HCPCS: 73130 ==

== ENCOUNTER 2024-08-07 14:00 | Outpatient (RCR) | payer BC, SELFPAY ==
--- NOTE | 2024-07-24 08:38 | MHC.PT.EP ---
[facility] [place] Office [place] Office [place] Office [address] Galilea Mueller [address] [phone] F: [phone] F: [phone] F: [phone] F: [phone] Physical Therapy Plan of Care Date of Evaluation: 07/24/24 Date of Surgery: n/a Diagnosis: B shoulder pain Assessment: Patient is a 64 year old male presenting to PT with complaints of pain in his B shoulders. Pt reports onset of pain began a couple years ago due to insidious onset. He presents today with impairments in pain, ROM, posture, RC strength. Pt's current occupation is retired, with baseline physical activities including reaching, ADLs, yardwork. 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 Clinical presentation today is most consistent with signs and sx associated with B shoulder pain and pt will benefit from skilled PT 2 week x 4 weeks to address the following problems and impairments noted upon evaluation: pain, ROM, posture, RC strength. These problems limit the patient with the following functional activities: reaching, ADLs, household duties. The prescribed treatment plan of care is medically necessary. Co-morbidities of none were identified and taken into considerations of plan of care. Pt was educated on HEP, role of PT, prognosis, POC. Frequency and Duration: The patient will be seen 2 x week x 4 weeks Short Term Goals: Pt will demonstrate pain free ROM in 2 weeks B. Pt will demonstrate improved flex, abd MMT strength by 1/3 grade in 2 weeks. Pt will demonstrate improved posture as evidence by min to no cues for form during session in 2 weeks. Skilled Nursing Goals: Pt will demonstrate improved SPADI score by 13 points in 4 weeks for improved functional mobility. Pt will demonstrate ability to reach in all directions with min to no pain in 4 weeks for return to PLOF. Treatment Plan: Modalities to reduce pain, spasms and effusion. Manual therapy to restore motion and function. Therapeutic exercise to improve strength and flexibility. Neuromuscular re-education for posture and balance. Therapeutic activities to return to functional activities of daily living. Electronically signed by: Lily Dickens, PT, DPT, ATC Please sign and return to therapist. Thank you for your referral.
--- NOTE | 2024-09-05 11:33 | MHC.PT.DC ---
[facility] [place] Office [place] Office [place] Office [address] Galilea Mueller [address] [facility] [phone] F: [phone] F: [phone] F: [phone] F: [phone] Physical Therapy Discharge Report Diagnosis: B shoulder pain Date of Surgery: n/a Date of Evaluation: 07/24/24 Date of Discharge: 09/05/24 Treatments to Date: 4 Cancellations to Date: 5 No Shows to Date: 0 Discharge Status: Patient Elected to Stop Discharge Summary: Pt cancelled all remaining appointments via clearwave. Therefore to be d/c. Electronically signed by: Lily Dickens, PT, DPT, ATC Please sign and return to therapist. Thank you for your referral.
== END 2024-09-05 11:33 | disposition home or self-care (01) ==
LOC: HO.PTCHIC 14:00
PROVIDERS: PCP Nurse Practitioner Family; Visit Provider Nurse Practitioner Family
DX: M25.511 Pain in right shoulder (principal); M25.512 Pain in left shoulder
CPT/HCPCS: 97110; 97140; 97161

== ENCOUNTER 2024-08-17 15:00 | Outpatient (RCR) | payer BC, SELFPAY ==
--- NOTE | 2024-07-27 14:49 | MHC.OT.EP ---
[address] [phone] Occupational Therapy Plan of Care Patient Name: Rajat Pino Date of Evaluation: 07/27/24 Diagnosis: PAIN IN R THUMB Pain Location: PAINFREE AT REST 4/10 BASE OF R THUMB Pain Score: 0-4/10 Pain Scale Used: Numeric (0 - 10) Aggravating Factors: OPENING TIGHT JAR Alleviating Factors: HEAT, BRACE Assessment: MR PINO REPORTS A ONE YEAR HISTORY OF R THUMB PAIN. HE STATES IT IS GRADUALLY WORSENING AT THE BASE OF THE THUMB, WHICH IS CONSISTENT WITH MOST RECENT XRAY WHICH INDICATES MODERATE/ SEVERE BASAL JOINT ARTHRITIS. A PREFABRICATED ORTHOSIS WAS PROVIDED AT THE ORTHO OFFICE. HE REPORTS A 23% LIMITATION PER THE QUICK DASH ASSESSMENT. A BRIEF COURSE OF OT IS INDICATED TO ADDRESS THE AREAS MENTIONED BELOW. Frequency and Duration: The patient will be seen 2X/WEEK FOR 3 WEEKS Short Term Goals: IND HEP IND ORTHOSIS USE IND JOINT PROTECTION AND ACTIVITY MODIFICATIONS REPORT <3/10 PAIN WITH IADLs USING AE/AT Care Home Goals: SEE ABOVE Treatment Plan: Therapeutic Exercise Therapeutic Activity Home Exercise Program Splinting Neuro Re-ed Patient Education Desensitization/Sensory Re-ed Edema Control ADL Training Ultrasound NMES Iontophoresis Paraffin Fluidotherapy MHP Cold Packs Joint Mobilization Soft Tissue Mobilization Kinesiotaping Other (see comments) Electronically Signed By: DONALD VO/L Please Sign and return to therapist. Thank you once again for your referral.
--- NOTE | 2024-09-10 15:02 | MHC.OT.DC ---
[address] [phone] F: [phone] Occupational Therapy Discharge Note Patient Name: Rajat Pino Provider: Gorge Robertson Diagnosis: PAIN IN R THUMB Date of Evaluation: 07/27/24 Date of Discharge: 09/10/24 Treatments to Date: 4 Cancellations to Date: 0 No Shows to Date: 0 Discharge Status: Improved Function Independent with HEP Discharge Summary: MR PINO HAS PROGRESSED WELL AND READY TO TRANSITION TO A HOME BASED PROGRAM. Electronically Signed By: DONALD VO/Eliane Reviewed/agree with student documentation: N/A Therapist: Please Sign and return to therapist, thank you for your referral.
== END 2024-09-10 15:00 | disposition home or self-care (01) ==
LOC: HO.OT 15:00
PROVIDERS: PCP Nurse Practitioner Family
DX: M79.644 Pain in right finger(s) (principal); M19.041 Primary osteoarthritis, right hand
CPT/HCPCS: 97035; 97110; 97140; 97165